=== PATIENT | female | born 1980 | race Caucasian/White ===

== ENCOUNTER 2024-08-27 16:16 | Emergency (ER) | payer SELFPAY ==
[2024-08-27 16:17] VITALS: BMI 24.3
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
[2024-08-27 16:32] VITALS: BP 110/74; PULSE 104; RESP 18; TEMP 36.8; O2SAT 96
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
== END 2024-08-27 18:07 | disposition home or self-care (01) ==
PROVIDERS: Emergency Provider Family Medicine
DX: S13.4XXA Sprain of ligaments of cervical spine, initial encounter (principal); S09.90XA Unspecified injury of head, initial encounter; S29.9XXA Unspecified injury of thorax, initial encounter; V89.2XXA Person injured in unspecified motor-vehicle accident, traffic, initial encounter
CPT/HCPCS: 70450; 72125; 72128; 99284